=== PATIENT | female | born 1995 | race African-American/Black ===

== ENCOUNTER 2017-06-18 08:54 | Emergency (ER) | payer MEDICAID ==
[~2017-06-18] VITALS: Ht 175.3 cm; Wt 69.9 kg
[~2017-06-18 08:54] MED LIST: BENADRYL25 MG ORAL; NKM; PREDNISONE10 MG ORAL
[2017-06-18] MEDS ORDERED: IRON325 M1 PO (09:08)
[2017-06-18 09:12] VITALS: BP 125/76
[2017-06-18] MEDS ORDERED: Augmentin 250mg tab ORAL ONE (09:45)
[2017-06-18] MEDS ORDERED: Lidocaine 2% Visc 15ml soln ORAL ONE (09:45)
--- NOTE | 2017-06-18 09:45 | Emergency Room Report ---
History of Present Illness General Chief Complaint: Sore Throat Source: Patient Present Illness HPI Patient presents with a sore throat for 2 days. She states the pain is severe when she tries to swallow. She rates it at 10/10 sharp. She denies any fevers or chills. She was vomiting on Thursday after drinking alcohol. She's not nauseated. She states her last period was normal for her. She's not at this time. She took Motrin yesterday and it helped a little bit. She's having trouble swallowing liquids at this time. 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 Period: 06/11/2017 Now: No Reviewed Nursing Documentation: PMH: Agreed; PSxH: Agreed Nursing Documentation-PMH Past Medical History: No History, Except For Review of Systems All Other Systems: negative except mentioned in HPI Physical Exam Vital Signs Date Time Temp Pulse Resp B/P (MAP) Pulse Ox O2 Delivery O2 Flow Rate FiO2 06/18/17 09:04 98.4 73 16 125/76 100 Room Air 98.4 Sp02 EP Interpretation: reviewed, normal General Appearance: well appearing, no apparent distress Head: normocephalic, atraumatic Eyes: bilateral eye normal inspection, bilateral eye PERRL ENT: hearing grossly normal, normal voice, pharyngeal erythema, tonsillar exudate Neck: full range of motion, supple Respiratory: no respiratory distress, speaking full sentences Cardiovascular #1: regular rate, rhythm Gastrointestinal: normal inspection Genitourinary: no CVA tenderness Musculoskeletal: back normal, digits/nails normal, gait/station normal Neurologic: alert, normal gait, grossly normal Psychiatric: mood/affect normal Skin: no rash Medical Decision Making Diagnostic Impression: Primary Impression: Pharyngitis Qualified Codes: J02.9 - Acute pharyngitis, unspecified ER Course Patient presents with sore throat. DDx: strep, viral amongst others. Exam c/w strep. In pain. Viscous lido ordered with antibiotics and decadron. Patient initially states unchanged, then states she did get relief with viscous lido. Discussed treatment plan. Improved. Patient stable for outpatient observation and treatment. Last Vital Signs Date Time Temp Pulse Resp B/P (MAP) Pulse Ox O2 Delivery O2 Flow Rate FiO2 06/18/17 11:23 97.6 60 16 136/79 100 Room Air 97.6 Status: improved Disposition: HOME, SELF-CARE Condition: Improved Scripts Ibuprofen* (MOTRIN*) 600 Mg Tablet 600 MG ORAL Q6H PRN for For Pain, #16 TAB Prov: Chalino Umanzor M.D. 06/18/17 Lidocaine HCl 2% Viscous (Lidocaine HCl 2% Viscous) 100 Ml Solution 10 ML ORAL QID PRN for For Pain, #60 ML Prov: Chalino Umanzor M.D. 06/18/17 Amoxicillin/Potassium Clav 500-125 Tablet* (AUGMENTIN 500-125 TABLET*) 1 Each Tablet 1 TAB ORAL THREE TIMES A DAY, #20 TAB Prov: Chalino Umanzor M.D. 06/18/17 Chalino Umanzor M.D. June 18, 2017 09:45
[2017-06-18] MEDS ORDERED: LIDOCAINE VISC100 ML ORAL (10:54)
[2017-06-18] MEDS ORDERED: IBUPROFEN600 MG ORAL (10:54)
[2017-06-18] MEDS ORDERED: AUGMENTIN 500-1 EACH ORAL (10:54)
[2017-06-18 11:23] VITALS: BP 136/79
== END 2017-06-18 11:23 | disposition home or self-care (01) ==
LOC: EMR 10:03
DX: J02.9 Acute pharyngitis, unspecified (principal)
CPT/HCPCS: 99284; J8540

== ENCOUNTER 2017-07-27 20:33 | Emergency (ER) | payer MEDICAID ==
[~2017-07-27] VITALS: Ht 175.3 cm; Wt 65.8 kg
[~2017-07-27 20:33] MED LIST changes: +AUGMENTIN 500-1 EACH ORAL; +IBUPROFEN600 MG ORAL; +IRON325 M1 PO; +LIDOCAINE VISC100 ML ORAL
[2017-07-27 21:04] VITALS: BP 122/70
[2017-07-27 21:29] LABS: ANION GAP 9 mmol/L (5-15); BLOOD UREA NITROGEN 11 mg/dL (7-18); CALCIUM 8.9 MG/DL (8.5-10.1); CARBON DIOXIDE 26 MMOL/L (21-32); CHLORIDE 103 MMOL/L (98-107); CREATININE 0.9 MG/DL (0.55-1.30); POTASSIUM 3.5 MMOL/L (3.5-5.1); SODIUM 138 MMOL/L (136-145)
[2017-07-27 21:33] LABS: BASOPHILS % (AUTO) 1.7 % (0.0-2.0); EOSINOPHILS % (AUTO) 1.7 % (0.0-3.0); HEMOGLOBIN 11.4 G/DL (12.0-16.0); LYMPHOCYTES % (AUTO) 33.8 % (20.0-45.0); MEAN CORPUSCULAR VOLUME 99 FL (80-99); NEUTROPHILS % (AUTO) 55.9 % (45.0-75.0); PLATELET COUNT 191 K/UL (150-450); RED BLOOD COUNT 3.62 M/UL (4.20-5.40); RED CELL DISTRIBUTION WIDTH 13.7 % (11.6-14.8); WHITE BLOOD COUNT 6.4 K/UL (4.8-10.8)
[2017-07-27 21:34] LABS: ALANINE AMINOTRANSFERASE 13 U/L (12-78); ALBUMIN/GLOBULIN RATIO 1.3 (1.0-2.7); ALKALINE PHOSPHATASE 59 U/L (46-116); ASPARTATE AMINO TRANSFERASE 15 U/L (15-37); BILIRUBIN,TOTAL 0.3 MG/DL (0.2-1.0)
[2017-07-27 21:36] LABS: APPEARANCE,URINE CLEAR; BILIRUBIN, URINE NEGATIVE (NEGATIVE); GLUCOSE, URINE (UA) NEGATIVE (NEGATIVE); KETONES,URINE 1+ (NEGATIVE); LEUKOCYTE ESTERASE ,URINE NEGATIVE (NEGATIVE); NITRITE,URINE NEGATIVE (NEGATIVE); PH,URINE 6 (4.5-8.0); PROTEIN,URINE 1+ (NEGATIVE); UROBILINOGEN,URINE 1 MG/DL (0.0-1.0)
[2017-07-27 21:38] LABS: COLOR,URINE YELLOW
[2017-07-27] MEDS ORDERED: DICYCLOMINE HCL10 MG PO (21:54)
[2017-07-27] MEDS ORDERED: RANITIDINE HCL150 MG ORAL (21:54)
[2017-07-27 22:27] VITALS: BP 127/76
--- NOTE | 2017-07-28 05:30 | Emergency Room Report ---
History of Present Illness General Chief Complaint: Abdominal Pain Source: Patient Present Illness HPI 22-year-old female presents ED complaining of abdominal pain. Started 4 days ago. Intermittent. 8 out of 10, sharp, nonradiating. Patient denies any pain on arrival. Denies dysuria or hematuria. Denies flank pain. Denies nausea or vomiting. No other aggravating relieving factors. Denies any other associated symptoms Allergies: Coded Allergies: No Known Allergies (Unverified , 08/31/15) Patient History Past Medical History: none Past Surgical History: none Pertinent Family History: none Social History: Denies: smoking, alcohol use, drug use Last Menstrual Period: July 12 Now: No Immunizations: UTD Reviewed Nursing Documentation: PMH: Agreed; PSxH: Agreed Review of Systems All Other Systems: negative except mentioned in HPI Physical Exam Vital Signs Date Time Temp Pulse Resp B/P (MAP) Pulse Ox O2 Delivery O2 Flow Rate FiO2 07/27/17 20:38 98.8 75 18 127/76 98 Room Air 98.8 Sp02 EP Interpretation: reviewed, normal General Appearance: no apparent distress, alert, GCS 15, non-toxic Head: normocephalic, atraumatic Eyes: bilateral eye normal inspection, bilateral eye PERRL ENT: hearing grossly normal, normal pharynx, no angioedema, normal voice Neck: full range of motion, supple/symm/no masses Respiratory: chest non-tender, lungs clear, normal breath sounds, speaking full sentences Cardiovascular #1: regular rate, rhythm, no edema Cardiovascular #2: 2+ carotid (R), 2+ carotid (L), 2+ radial (R), 2+ radial (L) , 2+ dorsalis pedis (R), 2+ dorsalis pedis (L) Gastrointestinal: normal bowel sounds, non tender, soft, non-distended, no guarding, no rebound Rectal: deferred Genitourinary: normal inspection, no CVA tenderness Musculoskeletal: back normal, gait/station normal, normal range of motion, non- tender Neurologic: alert, oriented x3, responsive, motor strength/tone normal, sensory intact, speech normal Psychiatric: judgement/insight normal, memory normal, mood/affect normal, no suicidal/homicidal ideation Reflexes: 3+ bicep (R), 3+ bicep (L), 3+ tricep (R), 3+ tricep (L), 3+ knee (R) , 3+ knee (L) Skin: normal color, no rash, warm/dry, well hydrated Lymphatic: no adenopathy Medical Decision Making Diagnostic Impression: Primary Impression: Abdominal pain Qualified Codes: R10.32 - Left lower quadrant pain ER Course Hospital Course 22-year-old F presents to ED with abdominal pain differential diagnosis: gastritis, SBO, cholecystits Clinical course Patient placed on stretcher. On nurse monitoring. After initial history,, physical exam reveals female in no acute distress. Abdomen is soft. No guarding or rebound. No pain at this time. No flank pain I ordered labs, IV fluids, UA Labs - no leukocytosis, no electrolyte abnormalities, LFTs normal, UA unremarkable Given no pain, benign abdominal exam with normal labs I believe no further intervention required at this time. I believe patient is safe for discharge with close follow-up with PMD. We'll prescribe Bentyl and Zantac. However if pain returns or worsens I recommend patient return to ED I feel this is a highly complex case requiring extensive working including EKG/ Rhythm strip, Xray/CT/US, Blood/urine lab work, repeat exams while in ED, and administration of strong opiates/narcotics for pain control, admission to hospital or close patient follow up. Diagnosis - abdominal pain Stable and discharged to home with prescriptions for Zantac, bentyl. Followup with PMD. Return to ED if symptoms recur or worsen Labs Test 07/27/17 20:42 White Blood Count 6.4 K/UL (4.8-10.8) Red Blood Count 3.62 M/UL (4.20-5.40) Hemoglobin 11.4 G/DL (12.0-16.0) Hematocrit 36.0 % (37.0-47.0) Mean Corpuscular Volume 99 FL (80-99) Mean Corpuscular Hemoglobin 31.5 PG (27.0-31.0) Mean Corpuscular Hemoglobin Concent 31.7 G/DL (32.0-36.0) Red Cell Distribution Width 13.7 % (11.6-14.8) Platelet Count 191 K/UL (150-450) Mean Platelet Volume 7.9 FL (6.5-10.1) Neutrophils (%) (Auto) 55.9 % (45.0-75.0) Lymphocytes (%) (Auto) 33.8 % (20.0-45.0) Monocytes (%) (Auto) 7.0 % (1.0-10.0) Eosinophils (%) (Auto) 1.7 % (0.0-3.0) Basophils (%) (Auto) 1.7 % (0.0-2.0) Urine Color Yellow Urine Appearance Clear Urine pH 6 (4.5-8.0) Urine Specific [place] 1.020 (1.005-1.035) Urine Protein 1+ (NEGATIVE) Urine Glucose (UA) Negative (NEGATIVE) Urine Ketones 1+ (NEGATIVE) Urine Occult Blood Negative (NEGATIVE) Urine Nitrite Negative (NEGATIVE) Urine Bilirubin Negative (NEGATIVE) Urine Urobilinogen 1 MG/DL (0.0-1.0) Urine Leukocyte Esterase Negative (NEGATIVE) Urine RBC 0-2 /HPF (0 - 2) Urine WBC 2-4 /HPF (0 - 2) Urine Squamous Epithelial Cells Few /LPF (NONE/OCC) Urine Bacteria Few /HPF (NONE) Urine HCG, Qualitative Negative (NEGATIVE) Sodium Level 138 MMOL/L (136-145) Potassium Level 3.5 MMOL/L (3.5-5.1) Chloride Level 103 MMOL/L (98-107) Carbon Dioxide Level 26 MMOL/L (21-32) Anion Gap 9 mmol/L (5-15) Blood Urea Nitrogen 11 mg/dL (7-18) Creatinine 0.9 MG/DL (0.55-1.30) Estimat Glomerular Filtration Rate > 60 mL/min (>60) Glucose Level 95 MG/DL (74-106) Calcium Level 8.9 MG/DL (8.5-10.1) Total Bilirubin 0.3 MG/DL (0.2-1.0) Aspartate Amino Transf (AST/SGOT) 15 U/L (15-37) Alanine Aminotransferase (ALT/SGPT) 13 U/L (12-78) Alkaline Phosphatase 59 U/L (46-116) Total Protein 7.0 G/DL (6.4-8.2) Albumin 4.0 G/DL (3.4-5.0) Globulin 3.0 g/dL Albumin/Globulin Ratio 1.3 (1.0-2.7) Lipase 132 U/L (73-393) Last Vital Signs Date Time Temp Pulse Resp B/P (MAP) Pulse Ox O2 Delivery O2 Flow Rate FiO2 07/27/17 22:27 98.8 18 127/76 98 Room Air 98.8 07/27/17 21:04 73 Status: improved Disposition: HOME, SELF-CARE Condition: Stable Scripts Ranitidine Hcl* (ZANTAC*) 150 Mg Tablet 150 MG ORAL TWICE A DAY, #30 TAB Prov: Jalen Foreman MD 07/27/17 Dicyclomine Hcl* (DICYCLOMINE HCL*) 10 Mg Capsule 10 MG PO QID, #20 CAP Prov: Jalen Foreman MD 07/27/17 Departure Forms: Return to Work Return to Work Date: Jul 29, 2017 Work Restrictions: None Patient Instructions: Abdominal Pain, Adult, [id number] Jalen Foreman MD Jul 28, 2017 05:30
== END 2017-07-27 22:27 | disposition home or self-care (01) ==
LOC: EMR 21:03
DX: R10.9 Unspecified abdominal pain (principal)
CPT/HCPCS: 36415; 80053; 81003; 81025; 83690; 85025; 96360; 96374; 96375; 99284

== ENCOUNTER 2017-09-19 16:05 | Emergency (ER) | payer MEDICAID ==
[~2017-09-19] VITALS: Ht 175.3 cm; Wt 68.0 kg
[~2017-09-19 16:05] MED LIST changes: +DICYCLOMINE HCL10 MG PO; +RANITIDINE HCL150 MG ORAL
[2017-09-19] MEDS ORDERED: Solu-MEDROL 125mg Inj IVP ONE (16:30)
[2017-09-19] MEDS ORDERED: DiphenhydrAMINE 50mg/ml Inj IVP ONE (16:30)
[2017-09-19 16:31] VITALS: BP 135/66
[2017-09-19] MEDS ORDERED: EPIPEN 2-P0.3 MG/0.3 IM (17:07)
[2017-09-19] MEDS ORDERED: DIPHENHYDRAMINE25 M1 ORAL (17:07)
[2017-09-19] MEDS ORDERED: PREDNISONE20 MG ORAL (17:07)
[2017-09-19 17:15] VITALS: BP 127/80
--- NOTE | 2017-09-19 17:37 | Emergency Room Report ---
History of Present Illness General Chief Complaint: Allergic Reaction Source: Patient Present Illness HPI 22-year-old female presents ED complaining of allergic reaction. States symptoms started today shortly after eating fish at a restaurant. Denies any known food or drug allergies. But states she's had allergic reactions in the past. States she noticed hives was itchy. Took some Benadryl prior to arrival. Feel short of breath. Denies throat swelling or tongue swelling. No other aggravating relieving factors. Denies any other associated symptoms Allergies: Coded Allergies: No Known Allergies (Unverified , 08/31/15) Patient History Past Medical History: none Past Surgical History: none Pertinent Family History: none Social History: Denies: smoking, alcohol use, drug use Last Menstrual Period: 09/10/2017 Now: No Immunizations: UTD Reviewed Nursing Documentation: PMH: Agreed; PSxH: Agreed Nursing Documentation-PMH Past Medical History: No Stated History Review of Systems All Other Systems: negative except mentioned in HPI Physical Exam Vital Signs Date Time Temp Pulse Resp B/P (MAP) Pulse Ox O2 Delivery O2 Flow Rate FiO2 09/19/17 16:10 99.7 88 16 139/82 99 Room Air 99.7 Sp02 EP Interpretation: reviewed, normal General Appearance: no apparent distress, alert, GCS 15, non-toxic Head: normocephalic, atraumatic Eyes: bilateral eye normal inspection, bilateral eye PERRL ENT: hearing grossly normal, normal pharynx, no angioedema, normal voice Neck: full range of motion, supple/symm/no masses Respiratory: chest non-tender, lungs clear, normal breath sounds, speaking full sentences Cardiovascular #1: regular rate, rhythm, no edema Cardiovascular #2: 2+ carotid (R), 2+ carotid (L), 2+ radial (R), 2+ radial (L) , 2+ dorsalis pedis (R), 2+ dorsalis pedis (L) Gastrointestinal: normal bowel sounds, non tender, soft, non-distended, no guarding, no rebound Rectal: deferred Genitourinary: normal inspection, no CVA tenderness Musculoskeletal: back normal, gait/station normal, normal range of motion, non- tender Neurologic: alert, oriented x3, responsive, motor strength/tone normal, sensory intact, speech normal Psychiatric: judgement/insight normal, memory normal, no suicidal/homicidal ideation, anxious Reflexes: 3+ bicep (R), 3+ bicep (L), 3+ tricep (R), 3+ tricep (L), 3+ knee (R) , 3+ knee (L) Skin: normal color, no rash, warm/dry, well hydrated Lymphatic: no adenopathy Medical Decision Making Diagnostic Impression: Primary Impression: Allergic reaction Qualified Codes: T78.40XA - Allergy, unspecified, initial encounter ER Course Hospital Course 22-year-old female presents ED complaining of allergic reaction, itchiness with rash Differential diagnoses include: allergic reaction, angioedema, anxiety Clinical course Patient placed on stretcher. monitoring analyst. After initial history and physical, I ordered Solu-Medrol, Benadryl, Zantac, IV fluids Upon reassessment patient states she feels better. Observed on site monitor with stable vitals. No signs of distress. Discussed findings with patient. I believe patient does have allergic reaction but there is an anxiety component as well. Patient states this is the second time she's had an allergic reaction but does not know the cause. I will provide EpiPen and recommended patient see her PMD for allergy testing i. I feel this is a highly complex case requiring extensive working including EKG/Rhythm strip, Xray/CT/US, Blood/urine lab work, repeat exams while in ED, and administration of strong opiates/narcotics for pain control, admission to hospital or close patient follow up. Diagnosis - allergic reaction Stable and discharged to home with prescriptions for epipen, prednisone, Benadryl. Followup with PMD. Return to ED if symptoms recur or worsen Last Vital Signs Date Time Temp Pulse Resp B/P (MAP) Pulse Ox O2 Delivery O2 Flow Rate FiO2 09/19/17 17:15 99.2 91 15 127/80 100 Room Air 99.7 Status: improved Disposition: HOME, SELF-CARE Condition: Stable Scripts Prednisone* (PREDNISONE*) 20 Mg Tablet 40 MG ORAL DAILY for 5 Days, TAB Prov: Jalen Foreman MD 09/19/17 Diphenhydramine Hcl* (DIPHENHYDRAMINE HCL*) 25 Mg Capsule 25 MG ORAL Q6H PRN for Itching, #30 CAP 0 Refills Prov: Jalen Foreman MD 09/19/17 Epinephrine (Epipen 2-Jose) 0.3 Mg/0.3 Ml Auto.injct 0.3 MG IM ONCE, #1 EA Prov: Jalen Foreman MD 09/19/17 Referrals: [facility] (PCP) Patient Instructions: Allergies Jalen Foreman MD Sep 19, 2017 17:37
== END 2017-09-19 17:15 | disposition home or self-care (01) ==
LOC: EMR 16:45
DX: T78.40XA Allergy, unspecified, initial encounter (principal); X58.XXXA Exposure to other specified factors, initial encounter; L29.9 Pruritus, unspecified
CPT/HCPCS: 96361; 96374; 96375; 99284; J1200; J2930; S0028

== ENCOUNTER 2018-01-01 04:57 | Emergency (ER) | payer MEDICAID ==
[~2018-01-01] VITALS: Ht 175.3 cm; Wt 68.0 kg
[~2018-01-01 04:57] MED LIST changes: +DIPHENHYDRAMINE25 M1 ORAL; +EPIPEN 2-P0.3 MG/0.3 IM; +PREDNISONE20 MG ORAL
[2018-01-01 05:10] VITALS: BP 124/84
[2018-01-01] MEDS ORDERED: IBUPROFEN600 MG ORAL (05:15)
[2018-01-01] MEDS ORDERED: AMOXICILLIN500 MG ORAL (05:15)
[2018-01-01] MEDS ORDERED: ROBITUSSIN NIG237 ML PO (05:15)
[2018-01-01 05:20] VITALS: BP 125/82
--- NOTE | 2018-01-01 05:59 | Emergency Room Report ---
History of Present Illness General Chief Complaint: Sore Throat Source: Patient Present Illness HPI Patient present with complaints of sore throat Reports that she has been having a mild cough as well After 7 days of sore throat and recently mild cough she also saw a tinge of blood as well denies any chest pain denies any shortness of breath Denies any back or flank pain denies any vomiting or diarrhea Sore throat is 6 out of 10 Allergies: Coded Allergies: No Known Allergies (Unverified , 08/31/15) Patient History Past Medical History: see triage record Pertinent Family History: none Last Menstrual Period: 12/22/2017 Now: No : 0 Para: 0 Reviewed Nursing Documentation: PMH: Agreed; PSxH: Agreed Nursing Documentation-PMH Past Medical History: No History, Except For Review of Systems All Other Systems: negative except mentioned in HPI Physical Exam Vital Signs Date Time Temp Pulse Resp B/P (MAP) Pulse Ox O2 Delivery O2 Flow Rate FiO2 01/01/18 05:01 98.1 72 16 124/84 100 Room Air Sp02 EP Interpretation: reviewed, normal General Appearance: well appearing, no apparent distress Head: normocephalic, atraumatic Eyes: bilateral eye PERRL, bilateral eye EOMI ENT: hearing grossly normal, TMs + canals normal, uvula midline, pharyngeal erythema Neck: full range of motion, supple, no meningismus, no bony tend Respiratory: lungs clear, normal breath sounds, no rhonchi, no respiratory distress, no retraction, no accessory muscle use Cardiovascular #1: normal peripheral pulses, regular rate, rhythm, no edema, no gallop, no JVD, no murmur Gastrointestinal: normal bowel sounds, non tender, soft, no mass, no organomegaly, non-distended, no guarding, no hernia, no pulsatile mass, no rebound Genitourinary: no CVA tenderness Musculoskeletal: normal inspection Neurologic: oriented x3, responsive, principal investigator III-XII nml as tested, motor strength/ tone normal, sensory intact Psychiatric: mood/affect normal Skin: normal color, no rash, warm/dry, palpation normal Lymphatic: normal inspection, no adenopathy Medical Decision Making Diagnostic Impression: Primary Impression: pharyngitis ER Course Given the patient's history exam and findings Consistent with pharyngitis Was likely some irritation from the cough and the pharyngitis causing the small tinge of blood patient does not have any active hemoptysis And is stable for initial conservative outpatient trial Last Vital Signs Date Time Temp Pulse Resp B/P (MAP) Pulse Ox O2 Delivery O2 Flow Rate FiO2 01/01/18 05:20 98.1 78 16 125/82 100 Room Air Status: unchanged Disposition: HOME, SELF-CARE Condition: Stable Scripts Dextromethorphan Hb/Doxylamine (ROBITUSSIN NIGHTTIME COUGH DM) 237 Ml Liquid 10 ML PO QHS for 5 Days, ML Prov: Rodger Jasmine DO 01/01/18 Ibuprofen* (MOTRIN*) 600 Mg Tablet 600 MG ORAL Q8H PRN for For Pain, #20 TAB 0 Refills Prov: Rodger Jasmine DO 01/01/18 Amoxicillin* (AMOXIL*) 500 Mg Capsule 500 MG ORAL THREE TIMES A DAY, #21 CAP Prov: Rodger Jasmine DO 01/01/18 Referrals: [facility] (PCP) Patient Instructions: Pharyngitis, [id number] Additional Instructions: Patient is provided with the discharge instructions notified to follow up with primary doctor in the next 2-3 days otherwise return to the er with any worsening symptoms. Please note that this report is being documented using [employer] technology. This can lead to erroneous entry secondary to incorrect interpretation by the dictating instrument. Rodger Jasmine DO Jan 01, 2018 05:59
== END 2018-01-01 05:20 | disposition home or self-care (01) ==
LOC: EMR 05:15
DX: J02.9 Acute pharyngitis, unspecified (principal)
CPT/HCPCS: 99283

== ENCOUNTER 2018-03-03 15:49 | Emergency (ER) | payer MEDICAID ==
[~2018-03-03] VITALS: Ht 165.1 cm; Wt 58.1 kg
[~2018-03-03 15:49] MED LIST changes: +AMOXICILLIN500 MG ORAL; +ROBITUSSIN NIG237 ML PO
--- NOTE | 2018-03-03 16:28 | NUR ---
ED Nurse Note: PT CAME IN FOR LACERATION AROUND 1CM, GOT CUT YESTERDAY AT WORK, NOT UPDATED WITH TETANUS SHOT. AOX4, VSS. WILL CONT TO MONITOR.
[2018-03-03] MEDS ORDERED: Tetanus/Diptheria/Pertussis Vaccine 0.5ml Syr IM ONE (16:30)
--- NOTE | 2018-03-03 16:33 | Emergency Room Report ---
History of Present Illness General Chief Complaint: To Be Triaged Present Illness HPI Pt. 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 pt. does not know when her last tetanus vaccination was. pt. is right handed. Patient states that bleeding stopped after several minutes of the occurrence. Patient denies taking blood thinning medications. Patient reports 5 out of 10 in severity burning sensation. Denies bony tenderness, erythema, warmth or paresthesias. Allergies: Coded Allergies: No Known Allergies (Unverified , 08/31/15) Patient History Past Medical History: see triage record Past Surgical History: none Pertinent Family History: none Now: No Reviewed Nursing Documentation: PMH: Agreed; PSxH: Agreed Review of Systems All Other Systems: negative except mentioned in HPI Physical Exam Sp02 EP Interpretation: reviewed, normal General Appearance: no apparent distress, alert, GCS 15, non-toxic Head: normocephalic, atraumatic Eyes: bilateral eye normal inspection, bilateral eye PERRL ENT: hearing grossly normal, normal voice Neck: full range of motion Respiratory: chest non-tender, lungs clear, normal breath sounds, speaking full sentences Cardiovascular #1: regular rate, rhythm, normal capillary refill Musculoskeletal: back normal, gait/station normal, normal range of motion, non- tender Neurologic: alert, oriented x3, responsive, motor strength/tone normal, sensory intact, speech normal, grossly normal Psychiatric: judgement/insight normal Skin: normal color, no rash, warm/dry, well hydrated, laceration - superficial avulsion laceration approx 1 cm in length of the left index finger. Medical Decision Making PA Attestation Dr. Umanzor is my supervising Physician whom patient management has been discussed with. Diagnostic Impression: Primary Impression: Laceration of finger Qualified Codes: S61.220A - Laceration with foreign body of right index finger without damage to nail, initial encounter ER Course Pt. 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 pt. does not know when her last tetanus vaccination was. pt. is right handed. Patient states that bleeding stopped after several minutes of the occurrence. Patient denies taking blood thinning medications. Patient reports 5 out of 10 in severity burning sensation. Denies bony tenderness, erythema, warmth or paresthesias. Ddx considered but are not limited to laceration, tendon injury, cellulitis, amputation Vital signs: are WNL, pt. is afebrile H&PE are most consistent with: superficial avulsion laceration approx 1 cm in length of the left index finger. ORDERS: none required at this time, the diagnosis is clinical ED INTERVENTIONS: -Tetanus vaccine was administered as pt. vaccination status was unknown. - The wound was copiously irrigated with normal saline, and explored for foreign body for which no FB was found. -Bacitracin and sterile dressing is applied. DISCHARGE: At this time pt. is stable for d/c to home. Will provide printed patient care instructions, and any necessary prescriptions. Care plan and follow up instructions have been discussed with the patient prior to discharge. Disposition: HOME, SELF-CARE Condition: Stable Scripts Fluconazole (FLUCONAZOLE) 100 Mg Tablet 100 MG ORAL DAILY, #2 TAB 0 Refills Prov: Barbie Bella 03/03/18 Cephalexin* (KEFLEX*) 500 Mg Capsule 500 MG ORAL EVERY 12 HOURS for 7 Days, #14 CAP 0 Refills Prov: Barbie Bella 03/03/18 Bacitracin/Polymyxin B Sulfate (BACITRACIN-POLYMYXIN OINTMENT) 28.35 Gm Oint...g. 1 APPLIC TP BID, #28.3 GM Prov: Barbie Blela 03/03/18 Patient Instructions: Nonsutured Laceration Care Additional Instructions: Take medications as directed. Follow up with a Primary Care Provider in 3-5 days, even if your symptoms have resolved. --Please review list of primary care clinics, if you do not already have a primary care provider Return sooner to ED if new symptoms occur, or current symptoms become worse. - Please note that this Emergency Department Report was dictated using [employer] technology software, occasionally this can lead to erroneous entry secondary to interpretation by the dictation equipment. Barbie Bella Mar 03, 2018 16:33
[2018-03-03] MEDS ORDERED: BACITRACIN-P28.35 GM TP (16:34)
[2018-03-03] MEDS ORDERED: CEPHALEXIN500 MG ORAL (16:34)
[2018-03-03 16:35] VITALS: BP 124/87
[2018-03-03] MEDS ORDERED: FLUCONAZOLE100 MG ORAL (16:50)
[2018-03-03 17:00] VITALS: BP 124/87
--- NOTE | 2018-03-03 17:00 | NUR ---
ED Nurse Note: PT SITTING PEACEFULLY IN BED IN NAD. AOX4. PRESCRIPTIONS AND DISCHARGE PAPERWORK EXPLAINED TO PT. PT VERBALIZES UNDERSTANDING AND DENIES ANY QUESTIONS AT THIS TIME. PRESCRIPTION AND DISCHARGE PAPERWORK GIVEN TO PT AND ID WRISTBAND REMOVED. PT WALKED OUT OF ER WITH STEADY GAIT AND ALL BELONGINGS.
== END 2018-03-03 17:00 | disposition short-term general hospital (02) ==
LOC: EMR 16:40
DX: S61.211A Laceration without foreign body of left index finger without damage to nail, initial encounter (principal); W27.8XXA Contact with other nonpowered hand tool, initial encounter; Y92.89 Other specified places as the place of occurrence of the external cause; Y99.0 Civilian activity done for income or pay; Z23 Encounter for immunization
CPT/HCPCS: 17999; 90471; 90715; 99283; Z7502

== ENCOUNTER 2018-05-27 09:23 | Emergency (ER) | payer OTHER, MEDICAID ==
[~2018-05-27] VITALS: Ht 175.3 cm; Wt 70.3 kg
[~2018-05-27 09:23] MED LIST changes: +BACITRACIN-P28.35 GM TP; +CEPHALEXIN500 MG ORAL; +FLUCONAZOLE100 MG ORAL
[2018-05-27 09:29] VITALS: BP 136/77
--- NOTE | 2018-05-27 09:35 | NUR ---
ED Nurse Note: Patient walked into ED c/o right eye redness. patient reports irritation of the eye when looking at bright light. patient reports that it started yesterday morning patient reports vomiting several times before this happened. 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
[2018-05-27] MEDS ORDERED: OCUFLOX5 ML RIGHT EYE (09:59)
[2018-05-27 10:18] VITALS: BP 136/77
--- NOTE | 2018-05-27 10:19 | NUR ---
ER DISCHARGE NOTE: Patient is cleared to be discharged per ERMD, pt is aox4, on room air, with stable vital signs. pt was given dc and prescription instructions, pt was able to verbalize understanding, pt id band removed. pt is able to ambulate with steady gait. pt took all belongings.
--- NOTE | 2018-05-27 13:22 | Emergency Room Report ---
History of Present Illness General Chief Complaint: Eye Problems Source: Patient Present Illness HPI 23-year-old female presents ED for evaluation. Patient presents with redness and irritation to the right eye started yesterday. Denies photophobia or blurry vision. Denies discharge. Patient states symptoms started shortly after having multiple episodes of vomiting. Patient states she was concerned that she had cataract removal done in 2018. No other aggravating relieving factors. Denies any other associated symptoms Allergies: Coded Allergies: No Known Allergies (Unverified , 08/31/15) Patient History Past Medical History: none Past Surgical History: other - cataract removal 03/2017 Pertinent Family History: none Social History: Denies: smoking, alcohol use, drug use Last Menstrual Period: 3-17 Now: No Immunizations: UTD Reviewed Nursing Documentation: PMH: Agreed; PSxH: Agreed Nursing Documentation-PMH Past Medical History: No History, Except For Review of Systems All Other Systems: negative except mentioned in HPI Physical Exam Vital Signs Date Time Temp Pulse Resp B/P (MAP) Pulse Ox O2 Delivery O2 Flow Rate FiO2 05/27/18 09:29 98.1 74 18 136/77 100 Room Air Sp02 EP Interpretation: reviewed, normal General Appearance: no apparent distress, alert, GCS 15, non-toxic Head: normocephalic Eyes: right eye other - subconjunctival hemorrhage R eye; left eye normal inspection; bilateral eye PERRL, bilateral eye EOMI ENT: normal ENT inspection Neck: normal inspection Respiratory: normal inspection Cardiovascular #1: normal inspection Gastrointestinal: normal inspection Rectal: deferred Genitourinary: no CVA tenderness Musculoskeletal: normal inspection Neurologic: alert, oriented x3, responsive, motor strength/tone normal, sensory intact, speech normal Psychiatric: normal inspection Skin: normal inspection Lymphatic: normal inspection Medical Decision Making Diagnostic Impression: Primary Impression: Subconjunctival hemorrhage Qualified Codes: H11.31 - Conjunctival hemorrhage, right eye ER Course Hospital Course 23 yo F presents with R eye irritation, redness Differential diagnoses include: conjunctivitis, traumatic iritis, foreign body, corneal abrasion Clinical course Patient placed on stretcher. After initial history physical exam reveals female in no acute distress. On exam there appears to be a subconjunctival hemorrhage medial to the right pupil. Extraocular movements intact. Visual acuity unchanged. Pupils equally reactive to light No evidence of conjunctivitis. Nothing and history suggest foreign body. Discussed findings with patient. Consideration for subconjunctival hemorrhages high given that patient had repeated bouts of vomiting just prior to onset of symptoms. course is self-limited and will resolve on its own Will discharged to home. I'll provide optho referrals. Diagnosis - subconjunctival hemorrhage Stable and discharged to home. Followup with PMD/Optho. Return to ED if symptoms recur or worsen Last Vital Signs Date Time Temp Pulse Resp B/P (MAP) Pulse Ox O2 Delivery O2 Flow Rate FiO2 05/27/18 10:18 98.1 74 18 136/77 100 Room Air Status: improved Disposition: HOME, SELF-CARE Condition: Stable Scripts Ofloxacin (OCUFLOX) 5 Ml Drops 1 DROP RIGHT EYE QID for 7 Days, ML Prov: Jalen Foreman MD 05/27/18 Referrals: Steve Pittman MD, Maziar M.D. MD Departure Forms: Return to Work Return to Work Date: May 28, 2018 Work Restrictions: None Patient Instructions: Subconjunctival Hemorrhage Jalen Foreman MD May 27, 2018 13:22
== END 2018-05-27 10:05 | disposition home or self-care (01) ==
LOC: EMR 09:45
DX: H11.31 Conjunctival hemorrhage, right eye (principal)
CPT/HCPCS: 99282

== ENCOUNTER 2018-07-04 12:36 | Emergency (ER) | payer MEDICAID, OTHER ==
[~2018-07-04] VITALS: Ht 175.3 cm; Wt 72.6 kg
[~2018-07-04 12:36] MED LIST changes: +OCUFLOX5 ML RIGHT EYE
[2018-07-04 12:40] VITALS: BP 111/72
--- NOTE | 2018-07-04 12:40 | NUR ---
ED Nurse Note: Patient walked in to ER c/o severe headache and pressure 9/10. pt aao x4 and ambulatory. calm and cooperative. pt denied vomiting but nausea feeling present. skin clean and intact.
[2018-07-04] MEDS ORDERED: Metoclopramide 10mg/2ml Inj IVP ONE (13:00)
[2018-07-04 13:44] LABS: APPEARANCE,URINE CLEAR; BASOPHILS % (AUTO) 1.9 % (0.0-2.0); BILIRUBIN, URINE NEGATIVE (NEGATIVE); COLOR,URINE PALE YELLOW; EOSINOPHILS % (AUTO) 0.9 % (0.0-3.0); GLUCOSE, URINE (UA) NEGATIVE (NEGATIVE); HEMOGLOBIN 12.9 G/DL (12.0-16.0); KETONES,URINE NEGATIVE (NEGATIVE); LEUKOCYTE ESTERASE ,URINE NEGATIVE (NEGATIVE); LYMPHOCYTES % (AUTO) 29.3 % (20.0-45.0); MEAN CORPUSCULAR VOLUME 92 FL (80-99); MONOCYTES % (AUTO) 5.1 % (1.0-10.0); NEUTROPHILS % (AUTO) 62.7 % (45.0-75.0); NITRITE,URINE NEGATIVE (NEGATIVE); PH,URINE 5 (4.5-8.0); PLATELET COUNT 251 K/UL (150-450); PROTEIN,URINE NEGATIVE (NEGATIVE); RED BLOOD COUNT 4.24 M/UL (4.20-5.40); RED CELL DISTRIBUTION WIDTH 15.5 % (11.6-14.8); UROBILINOGEN,URINE NORMAL MG/DL (0.0-1.0); WHITE BLOOD COUNT 5.5 K/UL (4.8-10.8)
[2018-07-04 13:54] LABS: ANION GAP 9 mmol/L (5-15); BLOOD UREA NITROGEN 13 mg/dL (7-18); CALCIUM 9.1 MG/DL (8.5-10.1); CARBON DIOXIDE 26 MMOL/L (21-32); CHLORIDE 104 MMOL/L (98-107); CREATININE 0.8 MG/DL (0.55-1.30); POTASSIUM 3.7 MMOL/L (3.5-5.1); SODIUM 139 MMOL/L (136-145)
[2018-07-04 13:55] VITALS: BP 122/64
--- NOTE | 2018-07-04 13:56 | NUR ---
AMA: SEE AMA FORM. Pt requested to talk to ERMD for AMA. ERMD spoke to the pt about risk for leaving AMA and estimated time was given. pt still insisted to leave. pt provided note for work. vital signs stable and steady gait. left unit with sister. pt took all her belongings.
[2018-07-04 13:59] LABS: ALANINE AMINOTRANSFERASE 17 U/L (12-78); ALBUMIN 4.2 G/DL (3.4-5.0); ALBUMIN/GLOBULIN RATIO 1.2 (1.0-2.7); ALKALINE PHOSPHATASE 58 U/L (46-116); ASPARTATE AMINO TRANSFERASE 23 U/L (15-37); BILIRUBIN,TOTAL 0.8 MG/DL (0.2-1.0)
== END 2018-07-04 14:37 | disposition home or self-care (01) ==
LOC: EMR 13:50
DX: R19.7 Diarrhea, unspecified (principal); R51 Headache
CPT/HCPCS: 36415; 80053; 81003; 81025; 83690; 85025; 96361; 96374; 99284; J2765

== ENCOUNTER 2018-09-13 21:38 | Emergency (ER) | payer OTHER ==
[~2018-09-13] VITALS: Ht 175.3 cm; Wt 70.3 kg
--- NOTE | 2018-09-13 22:07 | NUR ---
ED Nurse Note: Pt ambulated to ED from home c/o pain in L middle finger and needing ring removed, PT VSS
[2018-09-13 22:09] VITALS: BP 116/73
--- NOTE | 2018-09-13 22:09 | Emergency Room Report ---
History of Present Illness General Chief Complaint: Pain Source: Patient Present Illness HPI This is a 23-year-old female who is right-hand dominant. She has a ring on her left ring finger. She try to take it off and now is tight and the finger is swollen. Painful. Onset for 1 day. No nausea no vomiting. Worse with movement. Better with rest. Allergies: Coded Allergies: No Known Allergies (Unverified , 08/31/15) Patient History Past Medical History: see triage record, old chart reviewed Past Surgical History: none Pertinent Family History: none Social History: Denies: smoking Last Menstrual Period: 09/02/18 Now: No Immunizations: other Reviewed Nursing Documentation: PMH: Agreed; PSxH: Agreed Nursing Documentation-PMH Past Medical History: No Stated History Review of Systems Eye: Denies: eye pain, blurred vision ENT: Denies: ear pain, nose congestion, throat swelling Respiratory: Denies: cough, shortness of breath Cardiovascular: Denies: chest pain, palpitations Gastrointestinal: Denies: abdominal pain, diarrhea, nausea, vomiting Musculoskeletal: Denies: back pain, joint pain Skin: Denies: rash Neurological: Denies: headache, numbness Endocrine: Denies: increased thirst, increased urine Hematologic/Lymphatic: Denies: easy bruising All Other Systems: negative except mentioned in HPI Physical Exam Vital Signs Date Time Temp Pulse Resp B/P (MAP) Pulse Ox O2 Delivery O2 Flow Rate FiO2 09/13/18 21:49 98.2 76 18 116/73 (87) 97 Room Air Vitals normal Sp02 EP Interpretation: reviewed, normal General Appearance: well appearing, no apparent distress, alert Head: normocephalic, atraumatic Eyes: bilateral eye PERRL, bilateral eye EOMI ENT: hearing grossly normal, normal pharynx Neck: full range of motion, supple, no meningismus Respiratory: chest non-tender, lungs clear, normal breath sounds Cardiovascular #1: regular rate, rhythm, no murmur Gastrointestinal: normal bowel sounds, non tender, no mass, no organomegaly, no bruit, non-distended Musculoskeletal: back normal, gait/station normal, normal range of motion, other - Left Ring finger: Her ring is on a little tight. There is some soft tissue swelling distally from the ring. Full range of motion of the MCP, PIP, DIP joint. No infection. Psychiatric: mood/affect normal Medical Decision Making Diagnostic Impression: Primary Impression: External constriction of left ring finger, initial encounter ER Course Patient with constriction of her finger from a ring. Removed it without any problem. Patient felt better. Will discharge home. No infection. Last Vital Signs Date Time Temp Pulse Resp B/P (MAP) Pulse Ox O2 Delivery O2 Flow Rate FiO2 09/13/18 21:49 98.2 76 18 116/73 (87) 97 Room Air Status: improved Disposition: HOME, SELF-CARE Condition: Stable Additional Instructions: Follow-up with your doctor as needed. Return if worse. Ayaz Mejía MD Sep 13, 2018 22:09
[2018-09-13 22:10] VITALS: BP 116/73
== END 2018-09-13 22:10 | disposition home or self-care (01) ==
LOC: EMR 22:05
DX: S60.445A External constriction of left ring finger, initial encounter (principal); W49.04XA Ring or other jewelry causing external constriction, initial encounter; Y92.9 Unspecified place or not applicable
CPT/HCPCS: 99281

== ENCOUNTER 2018-10-19 10:33 | Emergency (ER) | payer OTHER ==
[~2018-10-19] VITALS: Ht 175.3 cm; Wt 74.8 kg
[2018-10-19 10:47] VITALS: BP 122/76
[2018-10-19] MEDS ORDERED: ZYRTEC10 MG ORAL (10:57)
[2018-10-19 11:06] VITALS: BP 118/74
--- NOTE | 2018-10-19 12:27 | Emergency Room Report ---
History of Present Illness General Chief Complaint: Upper Respiratory Illness Source: Patient Present Illness HPI Patient presents with complaints of nasal congestion cough Ongoing for the past 2 days patient also feels some pressure and discomfort to both eyes She reports having previous right-sided cataract surgery Denies any visual changes denies any chest pain denies any vomiting or diarrhea denies any recent travel [place] Allergies: Coded Allergies: No Known Allergies (Unverified , 08/31/15) Patient History Past Medical History: see triage record Now: No Reviewed Nursing Documentation: PMH: Agreed; PSxH: Agreed Nursing Documentation-PMH Past Medical History: No History, Except For Review of Systems All Other Systems: negative except mentioned in HPI Physical Exam Vital Signs Date Time Temp Pulse Resp B/P (MAP) Pulse Ox O2 Delivery O2 Flow Rate FiO2 10/19/18 10:38 98.1 65 17 123/75 (91) 98 Room Air Sp02 EP Interpretation: reviewed, normal General Appearance: well appearing, no apparent distress Head: normocephalic, atraumatic Eyes: bilateral eye PERRL, bilateral eye EOMI ENT: hearing grossly normal, normal pharynx, TMs + canals normal, uvula midline Neck: full range of motion, supple, no meningismus, no bony tend Respiratory: lungs clear, normal breath sounds, no rhonchi, no respiratory distress, no retraction, no accessory muscle use Cardiovascular #1: normal peripheral pulses, regular rate, rhythm, no edema, no gallop, no JVD, no murmur Gastrointestinal: normal bowel sounds, non tender, soft, no mass, no organomegaly, non-distended, no guarding, no hernia, no pulsatile mass, no rebound Genitourinary: no CVA tenderness Musculoskeletal: normal inspection Neurologic: oriented x3, responsive, 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 as tested, motor strength/ tone normal, sensory intact Psychiatric: mood/affect normal Skin: no rash Lymphatic: normal inspection, no adenopathy Medical Decision Making Diagnostic Impression: Primary Impression: Upper respiratory infection ER Course Given the patient's history and presentation multiple differentials and consideration including but not limited to bronchitis URI, pneumonia Other infectious pathology given [place] however patient does not have any obvious rash is not febrile At this time is stable for initial conservative outpatient trial Last Vital Signs Date Time Temp Pulse Resp B/P (MAP) Pulse Ox O2 Delivery O2 Flow Rate FiO2 10/19/18 11:06 98.3 62 15 118/74 100 Room Air Status: unchanged Disposition: HOME, SELF-CARE Condition: Stable Scripts Cetirizine Hcl* (ZYRTEC*) 10 Mg Tablet 10 MG ORAL DAILY for 7 Days, #30 TAB 0 Refills Prov: Rodger Jasmine DO 10/19/18 Referrals: [facility] Jaqueline Cazares. Departure Forms: Return to Work Return to Work in (Days): 2 Return to Work Date: Oct 21, 2018 Patient Instructions: Upper Respiratory Infection, Adult Additional Instructions: Patient is provided with the discharge instructions notified to follow up with primary doctor in the next 2-3 days otherwise return to the er with any worsening symptoms. Please note that this report is being documented using [employer] technology. This can lead to erroneous entry secondary to incorrect interpretation by the dictating instrument. Rodger Jasmine DO Oct 19, 2018 12:27
== END 2018-10-19 11:06 | disposition home or self-care (01) ==
LOC: EMR 11:05
DX: J06.9 Acute upper respiratory infection, unspecified (principal)
CPT/HCPCS: 99282

== ENCOUNTER 2019-07-12 11:38 | Emergency (ER) | payer BC, OTHER ==
[~2019-07-12] VITALS: Ht 175.3 cm; Wt 79.4 kg
[~2019-07-12 11:38] MED LIST changes: +ZYRTEC10 MG ORAL
[2019-07-12 11:47] VITALS: BP 121/66
[2019-07-12] MEDS ORDERED: PREDNISONE20 MG ORAL (12:04)
[2019-07-12] MEDS ORDERED: DIPHENHYDRAMINE25 M1 ORAL (12:04)
[2019-07-12 12:10] VITALS: BP 125/72
[2019-07-12] MEDS ORDERED: DiphenhydrAMINE 25mg Tab ORAL ONE (12:15)
--- NOTE | 2019-07-12 12:46 | Emergency Room Report ---
History of Present Illness General Chief Complaint: Allergic Reaction Source: Patient Present Illness HPI 24-year-old female presents to ED for possible allergic reaction. States that she was taking some keto diet pills and started feeling itching. States she started taking the pills this morning. Notes itching all over her body. Denies any rash. Denies any tongue swelling or throat swelling. Denies any shortness of breath. Denies any previous food or drug allergies. No other aggravating relieving factors. Denies any other associated symptoms Allergies: Coded Allergies: No Known Allergies (Unverified , 08/31/15) COVID-19 Screening Contact w/high risk pt: No Recent Travel to affected area: No Experienced COVID-19 symptoms?: No COVID-19 Testing performed AUDIO VIDEO TECH: No Patient History Past Medical History: none Past Surgical History: none Pertinent Family History: none Social History: Denies: smoking, alcohol use, drug use Last Menstrual Period: 07/06/19 Now: No Immunizations: UTD Reviewed Nursing Documentation: PMH: Agreed; PSxH: Agreed Nursing Documentation-PMH Past Medical History: No Stated History Review of Systems All Other Systems: negative except mentioned in HPI Physical Exam Vital Signs Date Time Temp Pulse Resp B/P (MAP) Pulse Ox O2 Delivery O2 Flow Rate FiO2 07/12/19 11:43 98.6 97 17 121/66 (84) 98 Room Air Sp02 EP Interpretation: reviewed, normal General Appearance: no apparent distress, alert, GCS 15, non-toxic Head: normocephalic, atraumatic Eyes: bilateral eye normal inspection, bilateral eye PERRL ENT: hearing grossly normal, normal pharynx, no angioedema, normal voice Neck: full range of motion, supple/symm/no masses Respiratory: chest non-tender, lungs clear, normal breath sounds, speaking full sentences Cardiovascular #1: regular rate, rhythm, no edema Cardiovascular #2: 2+ carotid (R), 2+ carotid (L), 2+ radial (R), 2+ radial (L) , 2+ dorsalis pedis (R), 2+ dorsalis pedis (L) Gastrointestinal: normal bowel sounds, non tender, soft, non-distended, no guarding, no rebound Rectal: deferred Genitourinary: normal inspection, no CVA tenderness Musculoskeletal: back normal, normal range of motion, gait/station normal, non- tender Neurologic: alert, motor strength/tone normal, oriented x3, sensory intact, responsive, speech normal Psychiatric: judgement/insight normal, memory normal, mood/affect normal, no suicidal/homicidal ideation Reflexes: 3+ bicep (R), 3+ bicep (L), 3+ tricep (R), 3+ tricep (L), 3+ knee (R) , 3+ knee (L) Skin: no rash Lymphatic: no adenopathy Medical Decision Making Diagnostic Impression: Primary Impression: Allergic reaction Qualified Codes: T78.40XA - Allergy, unspecified, initial encounter ER Course Hospital Course 24 yo F presents with itching after taking diet pills Differential diagnoses include: allergic reaction, angioedema , anaphylaxis Clinical course Patient placed on stretcher. Initial history of physical exam reveals female in no acute distress. No urticaria. No tongue swelling or throat swelling. No stridor. Lungs clear. Vitals stable. No signs of anaphylaxis. Given prednisone and Benadryl in ED. Instructed on avoidance of potential allergen. Safe for discharge for close outpatient follow-up. Patient would benefit from outpatient allergy evaluation. I will provide referrals for PMD i. I feel this is a highly complex case requiring extensive working including EKG/Rhythm strip, Xray/CT/US, Blood/urine lab work, repeat exams while in ED, and administration of strong opiates/narcotics for pain control, admission to hospital or close patient follow up. Diagnosis - allergic reaction Stable and discharged to home with prescriptions for prednisone, Benadryl. Followup with PMD. Return to ED if symptoms recur or worsen Last Vital Signs Date Time Temp Pulse Resp B/P (MAP) Pulse Ox O2 Delivery O2 Flow Rate FiO2 07/12/19 12:10 98.6 72 16 125/72 100 Room Air Status: improved Disposition: HOME, SELF-CARE Condition: Stable Scripts Diphenhydramine Hcl* (DIPHENHYDRAMINE HCL*) 25 Mg Capsule 25 MG ORAL Q6H PRN for Itching for 5 Days, #30 CAP 0 Refills Prov: Jalen Foreman MD 07/12/19 Prednisone* (PREDNISONE*) 20 Mg Tablet 40 MG ORAL DAILY, #10 TAB Prov: Jalen Foreman MD 07/12/19 [facility] Patient Instructions: Drug Allergy Additional Instructions: avoid the offending drug. continue prednisone and benedryl for 5 days. followup with your doctor to get an finish molder referral. Jalen Foreman MD July 12, 2019 12:46
== END 2019-07-12 12:10 | disposition home or self-care (01) ==
LOC: EMR 12:00
DX: T78.40XA Allergy, unspecified, initial encounter (principal); X58.XXXA Exposure to other specified factors, initial encounter; Y92.9 Unspecified place or not applicable
CPT/HCPCS: 99282; J7512

== ENCOUNTER 2019-07-30 07:51 | Emergency (ER) | payer OTHER ==
[~2019-07-30] VITALS: Ht 175.3 cm; Wt 83.9 kg
--- NOTE | 2019-07-30 08:23 | Emergency Room Report ---
History of Present Illness General Chief Complaint: Lower Extremity Injury Source: Patient, Medical Record Present Illness HPI This patient states that she has started exercising over the past couple weeks. She states that yesterday she went on a 2 mile walk. She states this is new for her as she is trying to be healthy. She states that yesterday she was feeling fine after her walk and she went to bed and states that when she woke up this morning she had pain and a little bit of swelling on the inner aspect of the arch of her left foot. She denies trauma. She denies recent illness. She denies fever or chills. She states the pain is primarily whenever she puts pressure on that location such as weightbearing. There is no redness or warmth. She has no ankle pain or swelling. She has no knee or lower leg pain or swelling. She has no other complaints. 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 eye Review of Systems All Other Systems: negative except mentioned in HPI Physical Exam Vital Signs Date Time Temp Pulse Resp B/P (MAP) Pulse Ox O2 Delivery O2 Flow Rate FiO2 07/30/19 07:57 98.4 80 18 126/78 (94) 99 Room Air Sp02 EP Interpretation: reviewed, normal General Appearance: no apparent distress, alert, GCS 15, non-toxic Head: normocephalic, atraumatic ENT: hearing grossly normal, no angioedema, normal voice Neck: normal inspection Respiratory: no respiratory distress, no retraction, no accessory muscle use, speaking full sentences Rectal: deferred Musculoskeletal: back normal, normal range of motion, gait/station normal, tender - L. inner mid arch: slight swelling, +TTP, no erythema or warmth. L. ankle WNL. L. calve wnl (no swelling or tenderness). No skin changes. Neurologic: alert, motor strength/tone normal, oriented x3, sensory intact, responsive, speech normal Psychiatric: judgement/insight normal, memory normal, mood/affect normal, no suicidal/homicidal ideation Skin: no rash, normal color Medical Decision Making Diagnostic Impression: Primary Impression: Foot arch pain ER Course This patient has a clinical presentation consistent with skeletal skeletal pain of her left foot. This is likely secondary to a tendinopathy there with her recent increase in exercise versus foot wear that she is using is not properly fitted to her foot. I suspect the latter. Patient has no evidence of infection or other concerning medical condition. There are no red flags on physical exam or history that would make me concerned for underlying fracture. Therefore, I do not feel that I need to obtain imaging studies. The patient has localized tenderness to palpation along the arch that makes this more likely to footwear. There is no evidence of compartment syndrome. There is no neurologic deficit. The patient was instructed on supportive home measures. No emergency medical condition was identified. The patient was educated to wear shoes that provide space at that location. She is also instructed on ice and elevation and ibuprofen. She is instructed to follow-up with a cabin service agent if her symptoms do not resolve with these measures. The patient was given return precautions and followup instructions. Last Vital Signs Date Time Temp Pulse Resp B/P (MAP) Pulse Ox O2 Delivery O2 Flow Rate FiO2 07/30/19 07:57 98.4 80 18 126/78 (94) 99 Room Air Status: improved Disposition: HOME, SELF-CARE Condition: Improved Scripts No Active Prescriptions or Reported Meds Etelvina Gomes DO Jul 30, 2019 08:23
[2019-07-30 08:40] VITALS: BP 126/78
== END 2019-07-30 08:56 | disposition home or self-care (01) ==
LOC: EMR 08:15
DX: M25.572 Pain in left ankle and joints of left foot (principal)
CPT/HCPCS: 99281

== ENCOUNTER 2019-09-10 17:52 | Emergency (ER) | payer OTHER ==
[~2019-09-10] VITALS: Ht 175.3 cm; Wt 81.6 kg
--- NOTE | 2019-09-10 18:12 | NUR ---
ED Nurse Note: urine sent to lab
[2019-09-10 18:23] VITALS: BP 125/71
--- NOTE | 2019-09-10 18:26 | NUR ---
ED Nurse Note: Patient ambulated to ED from home d/t headache, inability to sleep well for 4 days and loss of appetite. Per pt, headache feels like "pounding", pt's temp 99.1F at triage.
--- NOTE | 2019-09-10 18:27 | Emergency Room Report ---
History of Present Illness General Chief Complaint: General Complaint Source: Patient Present Illness HPI Disclaimer: Please note that this report is being documented using [employer] technology. This can lead to erroneous entry secondary to incorrect interpretation by the dictating instrument. HPI: 24-year-old female no reported past medical history presents with insomnia. She also reports decreased p.o. intake. No fevers. Denies pain. She states she stopped smoking marijuana 4 days ago and since that time has had poor sleep. She used to be a chronic marijuana smoker multiple times daily. She does state her poor sleep has caused a headache that is intermittent. No vomiting. 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 eye Review of Systems All Other Systems: negative except mentioned in HPI Physical Exam Vital Signs Date Time Temp Pulse Resp B/P (MAP) Pulse Ox O2 Delivery O2 Flow Rate FiO2 09/10/19 17:56 99.1 95 19 125/71 (89) 99 Room Air Sp02 EP Interpretation: reviewed, normal General Appearance: well appearing, no apparent distress Head: normocephalic, atraumatic Eyes: bilateral eye PERRL, bilateral eye EOMI ENT: hearing grossly normal, moist mucus membranes Neck: full range of motion, supple Respiratory: lungs clear, normal breath sounds, no rhonchi, no respiratory distress, no retraction, no wheezing Cardiovascular #1: normal peripheral pulses, regular rate, rhythm, no murmur Gastrointestinal: non tender, soft, non-distended, no guarding Neurologic: alert, oriented x3, speech normal, normal gait, no focal defects Skin: normal color, warm/dry Medical Decision Making Diagnostic Impression: Primary Impression: Insomnia ER Course Laboratory Tests Test 09/10/19 18:17 Urine HCG, Qualitative Negative (NEGATIVE) MDM: Patient presents with insomnia. My differential included but not limited to withdrawal from cannabinoids, poor sleep hygiene, illicit drug use to name a few. Low suspicion for intracranial hemorrhage. Low suspicion for other emergent medical process. Unfortunately patient has had poor sleep for the past week leading to headache and anorexia. She did wish to start a medication which I will provide for 3 days. Also recommended sleep hygiene. Avoiding illicit drugs and follow-up PMD. Last Vital Signs Date Time Temp Pulse Resp B/P (MAP) Pulse Ox O2 Delivery O2 Flow Rate FiO2 09/10/19 17:56 99.1 95 19 125/71 (89) 99 Room Air Disposition: HOME, SELF-CARE Condition: Stable Scripts Ondansetron (Zofran) 4 Mg Tablet 4 MG ORAL Q8H PRN for Nausea & Vomiting, #10 TAB 0 Refills Prov: Cb Kumar M.D. 09/10/19 Trazodone Hcl* (DESYREL*) 50 Mg Tablet 50 MG ORAL BEDTIME, #3 TAB Prov: Cb Kumar M.D. 09/10/19 Cb Kumar M.D. Sep 10, 2019 18:27
[2019-09-10] MEDS ORDERED: TRAZODONE HCL50 MG ORAL (18:52)
[2019-09-10] MEDS ORDERED: ZOFRAN4 MG ORAL ×2 (18:52→18:53)
[2019-09-10 18:57] VITALS: BP 125/71
--- NOTE | 2019-09-10 18:58 | NUR ---
ED Nurse Note: Pt cleared by health care Provider for discharge. DC instructions/prescription was given and explained to pt and verbalized understanding of teachings. All medical deviecs such as ID band removed. Pt is AAO x4, ambulatory and left with all personal belongings.
== END 2019-09-10 18:58 | disposition home or self-care (01) ==
LOC: EMR 18:15
DX: G47.00 Insomnia, unspecified (principal)
CPT/HCPCS: 81025; 99283

== ENCOUNTER 2019-11-20 09:37 | Emergency (ER) | payer OTHER, MEDICAID ==
[~2019-11-20] VITALS: Ht 175.3 cm; Wt 81.6 kg
[~2019-11-20 09:37] MED LIST changes: +ACETAMINOPHEN500 M3 ORAL; +TRAZODONE HCL50 MG ORAL; +ZOFRAN4 MG ORAL
[2019-11-20 09:48] VITALS: BP 123/83
--- NOTE | 2019-11-20 10:16 | Emergency Room Report ---
History of Present Illness General Chief Complaint: Eye Problems Source: Patient Present Illness HPI Patient presents with 2 to 3 days of inflammation in her eyes. She denies fevers or chills. The light bothers her eyes. The pain is rated 8/10 in her eyes. It is nonradiating. It is burning and aching. She has tearing of the right eye and there is some beige crusting in the morning. Her vision is unchan ged. She denies headache. Patient is status post cataract surgery and Silastic lens on the right. She wears eyeglasses. 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 No sore throat, chest pain, palpitations, nausea, vomiting, diarrhea, dysuria, abdominal pain, shortness of breath, joint pain, rashes, dizziness. She is not sexually active at this time. 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 Now: No Reviewed Nursing Documentation: PMH: Agreed; PSxH: Agreed Review of Systems All Other Systems: negative except mentioned in HPI Physical Exam Vital Signs Date Time Temp Pulse Resp B/P (MAP) Pulse Ox O2 Delivery O2 Flow Rate FiO2 11/20/19 09:48 98.4 68 18 123/83 (96) 100 Room Air Sp02 EP Interpretation: reviewed, normal General Appearance: well appearing, no apparent distress, GCS 15, non-toxic Head: normocephalic Eyes: bilateral eye EOMI, bilateral eye visual acuity - See recorded, bilateral eye other - Scleral and conjunctival injection ENT: normal pharynx, moist mucus membranes Neck: normal inspection, full range of motion, supple Respiratory: lungs clear, normal breath sounds Cardiovascular #1: regular rate, rhythm Cardiovascular #2: 2+ radial (R) Gastrointestinal: normal inspection Musculoskeletal: gait/station normal Neurologic: alert, grossly normal Psychiatric: mood/affect normal Skin: normal color, no rash Lymphatic: other Medical Decision Making Diagnostic Impression: Primary Impression: Conjunctivitis Qualified Codes: H10.9 - Unspecified conjunctivitis Additional Impression: Status post laser cataract surgery of right eye ER Course Patient presents with eye inflammation, pain, photophobia with some discharge. Differential includes bacterial conjunctivitis, viral conjunctivitis, keratoconjunctivitis amongst others. The patient does not wear contacts and this is occurring bilaterally so corneal abrasion is less likely. Patient will be covered with antibiotics and anti-inflammatory medications. Patient given Motrin in the emergency department for her pain. Discussed findings with patient and treatment plan. Discussed the need for outpatient follow-up. Patient stable for outpatient observation and treatment. Last Vital Signs Date Time Temp Pulse Resp B/P (MAP) Pulse Ox O2 Delivery O2 Flow Rate FiO2 11/20/19 09:48 98.4 68 18 123/83 (96) 100 Room Air Status: unchanged Disposition: HOME, SELF-CARE Condition: Stable Scripts Ibuprofen* (MOTRIN*) 600 Mg Tablet 600 MG ORAL Q6H PRN for FOR PAIN, #20 TAB 0 Refills Prov: Chalino Umanzor MD 11/20/19 Naphazoline Hcl/Pheniramine (OPCON-A EYE DROPS) 15 Ml Drops 2 DROP OP Q8HR PRN for eye pain/inflammation, #5 ML Prov: Chalino Umanzor MD 11/20/19 Sulfacetamide Sodium (BLEPH-10) 5 Ml Drops 2 DROP OP Q6HR, #5 ML Prov: Chalino Umanzor MD 11/20/19 Chalino Umanzor MD Nov 20, 2019 10:16
[2019-11-20] MEDS ORDERED: OPCON-A EYE DRO15 ML OP (10:30)
[2019-11-20] MEDS ORDERED: BLEPH-105 ML OP (10:30)
[2019-11-20] MEDS ORDERED: IBUPROFEN600 M1 ORAL (10:30)
== END 2019-11-20 10:51 | disposition home or self-care (01) ==
LOC: EMR 10:07
DX: H10.9 Unspecified conjunctivitis (principal); Z98.890 Other specified postprocedural states; F17.200 Nicotine dependence, unspecified, uncomplicated
CPT/HCPCS: 99282

== ENCOUNTER 2019-12-03 16:54 | Emergency (ER) | payer OTHER, MEDICAID ==
[~2019-12-03] VITALS: Ht 175.3 cm; Wt 81.6 kg
[~2019-12-03 16:54] MED LIST changes: +BLEPH-105 ML OP; +IBUPROFEN600 M1 ORAL; +OPCON-A EYE DRO15 ML OP
[2019-12-03 17:05] VITALS: BP 121/68
--- NOTE | 2019-12-03 17:10 | NUR ---
ED Nurse Note: pt ambulated to ED frm home due to bilateral eye pain when she look at bright lights or sunlight for 5 days. Pt is AOx4, calm and cooperative to care, VSS, on RA, afebrile on triage.
--- NOTE | 2019-12-03 17:45 | NUR ---
ED Nurse Note: ERMD at pt's room
[2019-12-03] MEDS ORDERED: Tetracaine 0.5% Opth 4ml Soln LEFT EYE ONE (18:00)
[2019-12-03] MEDS ORDERED: Fluorescein Strips BOTH EYES ONE (18:00)
[2019-12-03] MEDS ORDERED: IBUPROFEN600 M1 ORAL (18:11)
[2019-12-03 18:16] VITALS: BP 124/70
--- NOTE | 2019-12-03 18:43 | Emergency Room Report ---
History of Present Illness General Chief Complaint: Eye Problems Source: Medical Record Present Illness HPI 24-year-old female here with bilateral eye pain. Patient says that she has been spending a large amount of time outdoors in the sun without sunglasses and says that over the past 5 days "my eyes hurt and feel sore when I look into bright light." Says that when she is not looking into bright light she feels no pain. 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 Does not wear contact lenses. Normally wears corrective lenses but says that her glasses broke 2 weeks ago and has not been wearing them. She does not wear sunglasses when she is outside. Denies headaches, vision changes, fevers, chills, neck stiffness, chest pain, palpitation, shortness of breath, back pain, abdominal pain, nausea, vomiting. 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 COVID-19 Screening: Negative COVID-19 COVID-19 Testing Source: 09/2019 Patient History Last Menstrual Period: 11/25/19 Now: No Nursing Documentation-[facility] Past Medical History: No History, Except For Review of Systems All Other Systems: negative except mentioned in HPI Physical Exam Vital Signs Date Time Temp Pulse Resp B/P (MAP) Pulse Ox O2 Delivery O2 Flow Rate FiO2 12/03/19 16:59 98.2 72 15 121/68 (85) 100 Room Air Sp02 EP Interpretation: reviewed, normal General Appearance: no apparent distress, alert, non-toxic Head: normocephalic, atraumatic Eyes: bilateral eye normal inspection, bilateral eye PERRL, bilateral eye other - Fluorescein stain did not reveal any uptake. Patient had notable conjunctival erythema surrounding the iris at 3:00 and 9:00 in the bilateral eyes ENT: hearing grossly normal, normal pharynx, no angioedema, normal voice Neck: full range of motion, supple/symm/no masses Respiratory: chest non-tender, lungs clear, normal breath sounds, speaking full sentences Cardiovascular #1: regular rate, rhythm, no edema Cardiovascular #2: 2+ carotid (R), 2+ carotid (L), 2+ radial (R), 2+ radial (L), 2+ dorsalis pedis (R), 2+ dorsalis pedis (L) Gastrointestinal: normal bowel sounds, non tender, soft, non-distended, no guarding, no rebound Rectal: deferred Genitourinary: normal inspection, no CVA tenderness Musculoskeletal: back normal, normal range of motion, calf tenderness, gait/station normal, non-tender Neurologic: alert, motor strength/tone normal, oriented x3, sensory intact, responsive, speech normal Psychiatric: judgement/insight normal, memory normal, mood/affect normal, no suicidal/homicidal ideation Reflexes: 3+ bicep (R), 3+ bicep (L), 3+ tricep (R), 3+ tricep (L), 3+ knee (R), 3+ knee (L) Lymphatic: no adenopathy Medical Decision Making Diagnostic Impression: Primary Impression: UV keratitis ER Course 24-year-old female here with bilateral eye pain when she looks into bright light over the past 5 days. History and physical exam are consistent with UV keratitis. Patient did not have any discharge and did not appear to have evidence of conjunctivitis or any upper respiratory infection. There is no sign of corneal abrasion and thus no need for intraocular antibiotics or other interventions. The patient was told to wear sunglasses over the next several days while outside and to come back to the emergency department with any worsening symptoms. She expressed understanding and was discharged. Last Vital Signs Date Time Temp Pulse Resp B/P (MAP) Pulse Ox O2 Delivery O2 Flow Rate FiO2 12/03/19 17:05 98.2 15 121/68 100 Room Air 12/03/19 16:59 72 Disposition: HOME, SELF-CARE Condition: Stable Scripts Ibuprofen* (MOTRIN*) 600 Mg Tablet 600 MG ORAL Q6H PRN for FOR PAIN, #20 TAB 0 Refills Prov: Asim Matta M.D. 12/03/19 Referrals: [facility] Departure Forms: Return to Work Return to Work in (Days): 2 Patient Instructions: Chemical Conjunctivitis Additional Instructions: Avoid bright sunlight and bright lights. Make sure you wear polarized sunglasses when you are outside. Asim Matta M.D. Dec 03, 2019 18:43
== END 2019-12-03 18:16 | disposition home or self-care (01) ==
LOC: EMR 17:34
DX: H16.133 Photokeratitis, bilateral (principal)
CPT/HCPCS: 81025; 99283

== ENCOUNTER 2019-12-09 06:21 | Emergency (ER) | payer OTHER, MEDICAID ==
[~2019-12-09] VITALS: Ht 175.3 cm; Wt 84.8 kg
--- NOTE | 2019-12-09 06:34 | NUR ---
ED Nurse Note: patient wheelchair assist to ed from home c/o right foot pain 10/10 x 3 hours. presents with swelling. denies trauma or injury to extremity. assisted into bed. patient ao4 with nad. vitals stable. pt states she woke up to use the bathroom and felt pain on her foot.
[2019-12-09] MEDS ORDERED: Acetaminophen 500mg (ES) tab ORAL ONE ×2 (06:45→06:46)
--- NOTE | 2019-12-09 06:47 | NUR ---
ED Nurse Note: medicated patient; tolerated well. imaging done at bedside with wildlife technician
[2019-12-09] MEDS ORDERED: IBUPROFEN600 M1 ORAL (07:13)
[2019-12-09 07:16] VITALS: BP 134/71
--- NOTE | 2019-12-09 07:16 | NUR ---
ER DISCHARGE NOTE: Patient is cleared to be discharged per ERMD, pt is aox4, on room air, with stable vital signs. pt was given dc and prescription instructions, pt was able to verbalize understanding, pt id band removed. pt is able to ambulate with crutches. pt took all belongings.
--- NOTE | 2019-12-09 08:46 | Emergency Room Report ---
History of Present Illness General Chief Complaint: Lower Extremity Injury Source: Patient Present Illness HPI 24-year-old female presents to ED complaining of right foot pain. States that she woke up with the pain this morning. Throbbing, 10 out of 10, nonradiating. Denies any fall or injury. Points to the bottom of her foot. States she is unable to bear weight. No other aggravating relieving factors. Denies any other associated symptoms Allergies: Coded Allergies: No Known Allergies (Unverified , 08/31/15) COVID-19 Screening Contact w/high risk pt: No Recent Travel to affected area: No Experienced COVID-19 symptoms?: No COVID-19 Testing performed APPRENTICESHIP REPRESENTATIVE: Yes COVID-19 Screening: Negative COVID-19 COVID-19 Testing Source: 09/2019 Patient History Past Medical History: none Past Surgical History: none Pertinent Family History: none Social History: Denies: smoking, alcohol use, drug use Last Menstrual Period: 11/25/2019 Now: No : 1 Para: 0 Immunizations: UTD Reviewed Nursing Documentation: PMH: Agreed; PSxH: Agreed Nursing Documentation-PMH Past Medical History: No Stated History Review of Systems All Other Systems: negative except mentioned in HPI Physical Exam Vital Signs Date Time Temp Pulse Resp B/P (MAP) Pulse Ox O2 Delivery O2 Flow Rate FiO2 12/09/19 06:22 98.2 77 20 134/71 (92) 98 Room Air Sp02 EP Interpretation: reviewed, normal General Appearance: no apparent distress, alert, GCS 15, non-toxic Head: normocephalic, atraumatic Eyes: bilateral eye normal inspection, bilateral eye PERRL ENT: hearing grossly normal, normal pharynx, no angioedema, normal voice Neck: full range of motion, supple/symm/no masses Respiratory: chest non-tender, lungs clear, normal breath sounds, speaking full sentences Cardiovascular #1: regular rate, rhythm, no edema Cardiovascular #2: 2+ carotid (R), 2+ carotid (L), 2+ radial (R), 2+ radial (L), 2+ dorsalis pedis (R), 2+ dorsalis pedis (L) Gastrointestinal: normal bowel sounds, non tender, soft, non-distended, no guarding, no rebound Rectal: deferred Genitourinary: normal inspection, no CVA tenderness Musculoskeletal: back normal, normal range of motion, gait/station normal, tender - Tender to arch of right foot Neurologic: alert, motor strength/tone normal, oriented x3, sensory intact, responsive, speech normal Psychiatric: judgement/insight normal, memory normal, mood/affect normal, no suicidal/homicidal ideation Reflexes: 3+ bicep (R), 3+ bicep (L), 3+ tricep (R), 3+ tricep (L), 3+ knee (R), 3+ knee (L) Skin: no rash Lymphatic: no adenopathy Procedures Splinting Splinting : Consent: Verbal Pre-Made Type: ZUNILDA wrap Pre-Proc Neuro Vasc Exam: normal Post-Proc Neuro Vasc Exam: normal Patient Tolerated: Well Complications: None Medical Decision Making Diagnostic Impression: Primary Impression: Foot pain Qualified Codes: M79.671 - Pain in right foot ER Course Hospital Course 24-year-old female presents with right foot pain. No fall or injury Differential diagnoses include: Fracture, dislocation, sprain, contusion Clinical course Patient placed on stretcher. After initial history and physical, I ordered pain medications and Xrays of R foot Xrays prelim read shows no acute fracture/dislocation. I discussed findings with patient. Pain is primarily to the arch. No bruising or crepitus. Patient was seen here earlier this year with similar pain to the left foot. Consideration for plantar fasciitis at this time. I believe that this is a similar occurrence on the right foot. placed in zunilda wrap, given crutches Safe for discharge with close outpatient follow-up. I will provide Ortho referrals Diagnosis - foot pain Stable and discharged to home with prescription for Motrin. apply ice, keep elevated. weight bear as tolerated. Followup with PMD/ortho. Return to ED if symptoms recur or worsen Other X-Ray Diagnostic Results Other X-Ray Diagnostic Results : X-Ray ordered: Right foot # of Views/Limited Vs Complete: 3 View Indication: Pain EP Interpretation: Yes Interpretation: no dislocation, no soft tissue swelling, no fractures Impression: No acute disease Electronically Signed by: Electronically signed by Jalen Foreman MD Last Vital Signs Date Time Temp Pulse Resp B/P (MAP) Pulse Ox O2 Delivery O2 Flow Rate FiO2 12/09/19 07:16 98.2 73 20 134/71 98 Room Air Status: improved Disposition: HOME, SELF-CARE Condition: Improved Scripts Ibuprofen* (MOTRIN*) 600 Mg Tablet 600 MG ORAL Q8H PRN for FOR PAIN, #30 TAB 0 Refills Prov: Jalen Foreman MD 12/09/19 Referrals: NOT CHOSEN IPA/,REFERRING (PCP) [facility] Open 24 hour /7 days a week by Appointment Only [address] [facility] [address] [id number] Departure Forms: Return to Work Return to Work Date: Dec 12, 2019 Work Restrictions: No Prolonged Standing Patient Instructions: Plantar Fasciitis With [facility] Jalen Foreman MD Dec 09, 2019 08:46
--- NOTE | 2019-12-09 12:21 | Diagnostic Imaging Report ---
EXAM: X-RAY XRAY Foot Complete R CLINICAL HISTORY: Foot pain. COMPARISON: None FINDINGS: Total of 4 views of the right foot were obtained. Alignment is anatomic. There is no fracture, bony lesions or erosions. Joint spaces are unremarkable. Surrounding soft tissue is normal. IMPRESSION: NO ACUTE BONY ABNORMALITY.
== END 2019-12-09 07:17 | disposition home or self-care (01) ==
LOC: EMR 06:50
DX: M79.671 Pain in right foot (principal)
CPT/HCPCS: 99283

== ENCOUNTER 2020-02-05 12:00 | Emergency (ER) | payer OTHER, MEDICAID ==
[~2020-02-05] VITALS: Ht 175.3 cm; Wt 83.9 kg
--- NOTE | 2020-02-05 12:08 | NUR ---
ED Nurse Note: pt presents to ED c/o upper abd px, N/V/D onset at 0400, pt states that she had popeyes around midnight last night and thinks the symptoms are from undercooked meat. pt denies any blood in emesis or stool, rates the pain an 8/10. pt reports taking ibuprofen for the abd pain and that it helped, states she last vomited about an hour ago.
[2020-02-05 12:11] VITALS: BP 133/74
[2020-02-05] MEDS ORDERED: Lidocaine 2% Visc 15ml soln ORAL ONE (12:15)
[2020-02-05] MEDS ORDERED: Mylanta II UD 30ml ORAL ONE (12:15)
[2020-02-05] MEDS ORDERED: Dicyclomine HCl 10mg/5ml oral soln ORAL ONE (12:15)
[2020-02-05] MEDS ORDERED: ONDANSETRON ODT4 MG BC (12:48)
[2020-02-05] MEDS ORDERED: FAMOTIDINE20 MG ORAL (12:48)
[2020-02-05] MEDS ORDERED: DICYCLOMINE HCL10 MG ORAL (12:48)
[2020-02-05 12:50] VITALS: BP 133/74
--- NOTE | 2020-02-05 12:50 | NUR ---
ER DISCHARGE NOTE: Patient is cleared to be discharged per ERMD, pt is aox4, on room air, with stable vital signs. pt was given dc and prescription instructions, pt was able to verbalize understanding, pt id band removed without complications. pt is able to ambulate with steady gait. pt took all belongings.
--- NOTE | 2020-02-06 14:41 | Emergency Room Report ---
History of Present Illness General Chief Complaint: Nausea, Vomiting, and Diarrhea Source: Patient Present Illness HPI 24-year-old female presents for evaluation. Complaining of abdominal pain with vomiting and diarrhea. Pain is epigastric, burning, 6 out of 10, nonradiating. Started last night after eating fast food. Denies fevers or chills. Denies chest pain. Denies sick contacts or recent travel. No other aggravating relieving factors. Denies any other associated symptoms Allergies: Coded Allergies: No Known Allergies (Unverified , 08/31/15) COVID-19 Screening Contact w/high risk pt: No Recent Travel to affected area: No Experienced COVID-19 symptoms?: No COVID-19 Testing performed MANAGER PULMONARY: No Patient History Past Medical History: none Past Surgical History: none Pertinent Family History: none Social History: Denies: smoking, alcohol use, drug use Last Menstrual Period: 01/25/2020 Now: No Immunizations: UTD Reviewed Nursing Documentation: PMH: Agreed; PSxH: Agreed Review of Systems All Other Systems: negative except mentioned in HPI Physical Exam Vital Signs Date Time Temp Pulse Resp B/P (MAP) Pulse Ox O2 Delivery O2 Flow Rate FiO2 02/05/20 12:03 98.2 78 16 133/74 (93) 98 Room Air Sp02 EP Interpretation: reviewed, normal General Appearance: no apparent distress, alert, GCS 15, non-toxic Head: normocephalic, atraumatic Eyes: bilateral eye normal inspection, bilateral eye PERRL ENT: hearing grossly normal, normal pharynx, no angioedema, normal voice Neck: full range of motion, supple/symm/no masses Respiratory: chest non-tender, lungs clear, normal breath sounds, speaking full sentences Cardiovascular #1: regular rate, rhythm, no edema Cardiovascular #2: 2+ carotid (R), 2+ carotid (L), 2+ radial (R), 2+ radial (L), 2+ dorsalis pedis (R), 2+ dorsalis pedis (L) Gastrointestinal: normal bowel sounds, non tender, soft, non-distended, no guarding, no rebound Rectal: deferred Genitourinary: normal inspection, no CVA tenderness Musculoskeletal: back normal, normal range of motion, gait/station normal, non- tender Neurologic: alert, motor strength/tone normal, oriented x3, sensory intact, responsive, speech normal Psychiatric: judgement/insight normal, memory normal, mood/affect normal, no suicidal/homicidal ideation Reflexes: 3+ bicep (R), 3+ bicep (L), 3+ tricep (R), 3+ tricep (L), 3+ knee (R), 3+ knee (L) Lymphatic: no adenopathy Medical Decision Making Diagnostic Impression: Primary Impression: Gastroenteritis ER Course Hospital Course 24-year-old female presents with dental pain vomiting and diarrhea after eating fast food differential diagnosis: gastritis, SBO, cholecystits, gastroenteritis Clinical course Patient placed on stretcher. Initial history physical exam reveals female in no acute distress. Abdomen soft. No guarding or rebound. Vital stable. Afebrile, nontoxic-appearing. Discussed findings with patient. Likely viral and self-limited. I offered option for IV but patient declined. Given ODT Zofran. P.o. Pepcid and GI cocktail here with symptoms improved. Safe for discharge with close outpatient follow-up. I feel this is a highly complex case requiring extensive working including EKG/Rhythm strip, Xray/CT/US, Blood/urine lab work, repeat exams while in ED, and administration of strong opiates/narcotics for pain control, admission to hospital or close patient follow up. Diagnosis - gastroenteritis Stable and discharged to home with prescriptions for pepcid, zofran, bentyl. Followup with PMD. Return to ED if symptoms recur or worsen Last Vital Signs Date Time Temp Pulse Resp B/P (MAP) Pulse Ox O2 Delivery O2 Flow Rate FiO2 02/05/20 12:50 98.2 86 16 133/74 98 Room Air Status: improved Disposition: HOME, SELF-CARE Condition: Stable Scripts Dicyclomine Hcl* (DICYCLOMINE HCL*) 10 Mg Capsule 10 MG ORAL QID, #20 CAP Prov: Jalen Foreman MD 02/05/20 Famotidine* (Pepcid 20mg tablet*) 20 Mg Tablet 20 MG ORAL DAILY for Gerd, #30 TAB 0 Refills Prov: Jaeln Foreman MD 02/05/20 Ondansetron Odt* (ZOFRAN ODT*) 4 Mg Tab.rapdis 4 MG BC EVERY 6 HOURS PRN for Nausea & Vomiting, #20 TAB 0 Refills Prov: Jalen Foreman MD 02/05/20 Referrals: NON PHYSICIAN (PCP) Departure Forms: Return to Work Return to Work Date: Feb 06, 2020 Work Restrictions: None Patient Instructions: Viral Gastroenteritis, Adult, [id number] Jalen Foreman MD Feb 06, 2020 14:41
== END 2020-02-05 12:50 | disposition home or self-care (01) ==
LOC: EMR 12:30
DX: K52.9 Noninfective gastroenteritis and colitis, unspecified (principal)
CPT/HCPCS: 99282